=== PATIENT | female | born 1935 | race Asian ===

== ENCOUNTER 2020-12-20 11:58 | Inpatient (IN) | payer OTHER ==
[~2020-12-20] VITALS: Ht 157.5 cm; Wt 57.6 kg
--- NOTE | 2020-12-20 12:05 | NUR ---
Patient to ER bed 06 to gown for evaluation. Side rails up.
[2020-12-20 12:08] VITALS: BP_SYST 122
--- NOTE | 2020-12-20 12:10 | NUR ---
ER at bedside examining patient.
--- NOTE | 2020-12-20 12:10 | NUR ---
Pt brought in from [facility] with increased ALOC since 10AM. At this time pts VSS. Pt is alert x1 which per facility is her baseilne and able to state her name. Capacity Planner are equal, perrla, no slurred speach or facial droop noted. Able to move all extremities. No complaints of pain, SOB or chest pain.
--- NOTE | 2020-12-20 12:20 | NUR ---
# 24 gauge angiocath placed to right FA. Use of asceptic technique. Opsite placed over site. Blood return noted. Blood for lab drawn from site. Flushed with 10 cc of normal saline. No evidence of infiltration noted. Patient tolerated well.
[2020-12-20 12:48] LABS: BASOPHILS % (AUTO) 0.2 % (0.0-2.0); HEMATOCRIT 36.6 % (36-48); HEMOGLOBIN 12.1 g/dL (12.0-16.0); LYMPHOCYTES # (AUTO) 1.4 K/uL (1.0-5.5); LYMPHOCYTES % (AUTO) 9.8 % (20.5-51.5); MEAN CORPUSCULAR HEMOGLOBIN 28 pg (27-31); MEAN CORPUSCULAR HGB CONC 33 % (32-36); MEAN CORPUSCULAR VOLUME 84 fL (79.0-98.0); MONOCYTES # (AUTO) 1.4 K/uL (0.0-1.0); MONOCYTES % (AUTO) 9.6 % (1.7-9.3); NEUTROPHILS # (AUTO) 11.7 K/uL (1.8-7.7); NEUTROPHILS % (AUTO) 80.4 % (40.0-70.0); PLATELET COUNT (AUTO) 281 K/uL (130-430); RED BLOOD CELL COUNT(AUTO) 4.34 MIL/uL (4.2-6.2); RED CELL DISTRIBUTION WIDTH 16.5 % (9.0-15.0); WHITE BLOOD COUNT (AUTO) 14.5 K/uL (4.8-10.8)
--- NOTE | 2020-12-20 12:58 | NUR ---
Pt taken to CT in stable condition.
--- NOTE | 2020-12-20 12:59 | NUR ---
UA sent to lab.
[2020-12-20 13:00] LABS: ANION GAP 11 (5-15); CALCIUM 8.9 mg/dL (8.4-11.0); CHLORIDE 92 mmol/L (98-107); CREATININE 1.03 mg/dL (0.55-1.30); GLUCOSE 129 mg/dL (70-99); POTASSIUM 3.5 mmol/L (3.5-5.1); SODIUM SERUM 126 mmol/L (136-145); UREA NITROGEN, BLOOD 15 mg/dL (8-21)
[2020-12-20] MEDS ORDERED: NACL 0.9% 1,000 ML IV ONE (13:00)
[2020-12-20 13:06] LABS: ALANINE AMINOTRANSFERASE 39 U/L (12-78); ALBUMIN 2.4 g/dL (3.4-4.8); ASPARTATE AMINOTRANSFERASE 38 U/L (10-37); TOTAL BILIRUBIN 0.6 mg/dL (0.0-1.0)
[2020-12-20 13:29] LABS: BILIRUBIN,URINE NEGATIVE (NEGATIVE); BLOOD, URINE 3+ (NEGATIVE); COLOR,URINE YELLOW (YELLOW); GLUCOSE,URINE NEGATIVE (NEGATIVE); KETONES,URINE 1+ (NEGATIVE); LEUKOCYTE ESTERASE ,URINE TRACE (NEGATIVE); NITRITE, URINE NEGATIVE (NEGATIVE); PROTEIN URINE 2+ (NEGATIVE)
[2020-12-20] MEDS ORDERED: cefTRIAXone 1 GM in D5W 50 ML IV ONE (13:30)
[2020-12-20 13:32] LABS: CLARITY/URINE HAZY (CLEAR)
[2020-12-20 13:36] LABS: BACTERIA,URINE MANY /HPF (None Seen); MUCUS,URINE 1+ /LPF (None Seen)
[2020-12-20] MEDS ORDERED: cefTRIAXone 1 GM VIAL ONE (13:36)
--- NOTE | 2020-12-20 13:39 | NUR ---
IV abx infusing.
[2020-12-20] MEDS ORDERED: VALS320T2 PO (13:43)
[2020-12-20] MEDS ORDERED: DOCU-144 PO (13:43)
[2020-12-20] MEDS ORDERED: METO25TA3 PO (13:43)
[2020-12-20] MEDS ORDERED: PRO40 PO (13:43)
[2020-12-20] MEDS ORDERED: ZINC50TA69 PO (13:43)
[2020-12-20] MEDS ORDERED: MULT-1117 PO (13:43)
[2020-12-20] MEDS ORDERED: LEVE500T9 PO (13:43)
--- NOTE | 2020-12-20 13:44 | NUR ---
Med rec and belongings list completed.
--- NOTE | 2020-12-20 13:46 | NUR ---
Admit orders received from Dr. Suero, pt to go to tele. Called for bed, charge nurse at lunch, will call us back for bed assignment.
--- NOTE | 2020-12-20 14:25 | NUR ---
Patient will be admitted to care of Pio. Admitted to tele unit. Will go to room 113 B. Belongings list completed. Complete and up to date summary report printed. SBAR report to be given at bedside with opportunity for questions.
--- NOTE | 2020-12-20 14:42 | NUR ---
ADMISSION NOTE Received patient from ER via gurney. Patient admitted with diagnosis of HYPONATREMIA. Patient is awake, alert, oriented X 2. Patient oriented to hospital room, call light, toileting, pain management and safety-teach back done. Personal belongings checked and Belongings List documented. Call light within reach.
--- NOTE | 2020-12-20 14:50 | NUR ---
OPENING NOTE PATIENT IS ALERT AND ORIENTED X2. SON AT BEDSIDE. PATIENT IS ON ROOM AIR AND TOLERATING WELL WITH NO SIGNS OF SHORTNESS OF BREATH NOTED. IV IS PATENT, INFUSING FLUIDS ORDERED. VITAL SIGNS ARE STABLE. BED LOCKED AND IN LOWEST POSITION. CALL LIGHT WITHIN REACH. BED ALARM ON. SAFETY AND FALL PRECAUTIONS IN PLACE. WILL CONTINUE TO MONITOR.
[2020-12-20 15:15] VITALS: BP_SYST 122
[2020-12-20] MEDS: NACL 0.9% 1,000 ML IV SCH (15:37)
[2020-12-20 15:54] VITALS: BP_SYST 122
--- NOTE | 2020-12-20 17:18 | NUR ---
CT PATIENT TAKEN TO CT SCAN OF ABDOMEN. IN STABLE CONDITION. PATIENT'S [id number] WENT WITH. WILL WAIT FOR RETURN TO UNIT.
[2020-12-20] MEDS: PIPERACILLIN/TAZO 3.375/DEX-IS 50 ML IV SCH ×2 (17:40→23:26)
--- NOTE | 2020-12-20 19:30 | NUR ---
OPENING NOTE RECEIVED PATIENT FROM DAY SHIFT RN. PATIENT IS RESTING IN HER BED. SON AT THE BEDSIDE. NO SIGNS OF ACUTE DISTRESS NOTED. PATIENT IS BREATHING EASY, UNLABORED TO ROOM AIR. NO SIGNS OF RESPIRATORY DISTRESS NOTED. IV INTACT AND RUNNING FLUIDS. ROBLES CATHETER INTACT, DRAINING BY GRAVITY. CALL LIGHT WITHIN REACH. BED IS LOCKED AND PLACED AT THE LOWEST POSITION. SAFETY, FALL, SEIZURE, AND ASPIRATION PRECAUTIONS IN PLACED. WILL CONTINUE TO MONITOR.
[2020-12-20 20:00] VITALS: BP_SYST 143
[2020-12-20] MEDS: levETIRAcetam 500 MG TABLET PO SCH (20:13)
[2020-12-21] VITALS: BP_SYST 118
--- NOTE | 2020-12-21 00:46 | NUR ---
Paged Dr. Suero [phone] s/w Ashley
--- NOTE | 2020-12-21 01:01 | NUR ---
SECOND PAGED DR. VARGAS
--- NOTE | 2020-12-21 02:34 | NUR ---
PAGED DR. VARGAS AGAIN. AWAITING MD TO CALL BACK.
[2020-12-21 02:40] VITALS: BP_SYST 134
--- NOTE | 2020-12-21 03:02 | NUR ---
REPAGED DR. VARGAS. STILL WAITING MD TO CALL BACK.
--- NOTE | 2020-12-21 03:43 | NUR ---
NOTIFIED DR VARGAS REGARDING PT POSITIVE BLOOD CULTURE, FEVER, AND HEART RATE. NEW ORDER RECEIVED. WILL CONTINUE TO MONITOR. Addendum: 12/21/20 at 0550 by Xavire Denton RN SARKIS
--- NOTE | 2020-12-21 03:43 | NUR ---
CALLED BACK. NOTIFIED DR VARGAS REGARDING PT POSITIVE BLOOD CULTURE, FEVER, AND HEART RATE. NEW ORDER RECEIVED. WILL CONTINUE TO MONITOR.
[2020-12-21] MEDS ORDERED: LEVOFLOXACIN IN DEXTROSE 5 % 100 ML IV SCH (04:00)
[2020-12-21] MEDS ORDERED: ACETAMINOPHEN 325 MG TABLET PO PRN (04:00)
[2020-12-21] MEDS ORDERED: LEVOFLOXACIN IN DEXTROSE 5 % 100 ML IV ONE (04:36)
[2020-12-21] MEDS: NACL 0.9% 1,000 ML IV SCH ×2 (04:42→20:23)
[2020-12-21] MEDS: PIPERACILLIN/TAZO 3.375/DEX-IS 50 ML IV SCH ×4 (06:35→23:51)
--- NOTE | 2020-12-21 06:40 | NUR ---
CLOSING NOTE PATIENT IS RESTING IN HER BED. PATIENT IS BREATHING EASY, UNLABORED TO ROOM AIR. NO SIGNS OF RESPIRATORY DISTRESS NOTED. IV INTACT AND RUNNING FLUIDS. NO SIGNS OF INFILTRATION NOTED. ROBLES CATHETER INTACT, DRAINING BY GRAVITY. CALL LIGHT WITHIN REACH. BED IS LOCKED AND PLACED AT THE LOWEST POSITION. SAFETY, FALL, SEIZURE, AND ASPIRATION PRECAUTIONS IN PLACED. ALL NEEDS ARE MET THROUGHOUT SHIFT. WILL CONTINUE TO MONITOR UNTIL ENDORSE TO DAY SHIFT RN.
--- NOTE | 2020-12-21 06:44 | NUR ---
Nutrition Update Obed Scale 15 noted. Pt admitted for Hyponatremia, UTI Diet: 2gm Na BMI: 23.2 kg/m2 RD to follow per nutrition care standards.
[2020-12-21 07:09] LABS: BASOPHILS % (AUTO) 0.1 % (0.0-2.0); HEMATOCRIT 36.7 % (36-48); HEMOGLOBIN 11.9 g/dL (12.0-16.0); LYMPHOCYTES # (AUTO) 0.4 K/uL (1.0-5.5); LYMPHOCYTES % (AUTO) 2.9 % (20.5-51.5); MEAN CORPUSCULAR HEMOGLOBIN 28 pg (27-31); MEAN CORPUSCULAR HGB CONC 32 % (32-36); MEAN CORPUSCULAR VOLUME 85 fL (79.0-98.0); MONOCYTES # (AUTO) 0.2 K/uL (0.0-1.0); MONOCYTES % (AUTO) 1.3 % (1.7-9.3); NEUTROPHILS # (AUTO) 11.8 K/uL (1.8-7.7); NEUTROPHILS % (AUTO) 95.7 % (40.0-70.0); PLATELET COUNT (AUTO) 168 K/uL (130-430); RED BLOOD CELL COUNT(AUTO) 4.31 MIL/uL (4.2-6.2); RED CELL DISTRIBUTION WIDTH 16.6 % (9.0-15.0); WHITE BLOOD COUNT (AUTO) 12.4 K/uL (4.8-10.8)
[2020-12-21 07:24] LABS: ALANINE AMINOTRANSFERASE 36 U/L (12-78); ANION GAP 15 (5-15); ASPARTATE AMINOTRANSFERASE 52 U/L (10-37); CALCIUM 8.5 mg/dL (8.4-11.0); CHLORIDE 99 mmol/L (98-107); CREATININE 0.91 mg/dL (0.55-1.30); GLUCOSE 104 mg/dL (70-99); POTASSIUM 3.3 mmol/L (3.5-5.1); SODIUM SERUM 134 mmol/L (136-145); TOTAL BILIRUBIN 0.9 mg/dL (0.0-1.0); UREA NITROGEN, BLOOD 12 mg/dL (8-21)
[2020-12-21 08:00] VITALS: BP_SYST 112
--- NOTE | 2020-12-21 08:00 | NUR ---
OPENING NOTE PATIENT IS ALERT AND ORIENTED X 3. PATIENT IS ON ROOM AIR AND TOLERATING WELL WITH NO SIGNS OF SHORTNESS OF BREATH NOTED. IV IS PATENT, INFUSING FLUIDS ORDERED. BED LOCKED AND IN LOWEST POSITION. CALL LIGHT WITHIN REACH. BED ALARM ON. SAFETY AND FALL PRECAUTIONS IN PLACE. WILL CONTINUE TO MONITOR.
[2020-12-21] MEDS: levETIRAcetam 500 MG TABLET PO SCH ×2 (08:12→20:24)
[2020-12-21] MEDS: LOSARTAN POTASSIUM 50 MG TABLET (COZAAR) PO SCH (08:12)
[2020-12-21] MEDS: METOPROLOL SUCCINATE 25 MG TAB.SR.24H (TOPROL XL) PO SCH (08:12)
[2020-12-21] MEDS: MULTIVITAMINS TAB 1 TABLET PO SCH (08:13)
[2020-12-21] MEDS: PANTOPRAZOLE SODIUM 40 MG TAB PO SCH (08:13)
[2020-12-21] MEDS: DOCUSATE SODIUM 100 MG CAPSULE PO SCH (08:13)
[2020-12-21 12:25] VITALS: BP_SYST 109
--- NOTE | 2020-12-21 13:20 | NUR ---
IV RE-INSERTION: Complaining of pain to IV site. Restarted on left forearm. Successful after 2 attempts. Resumed current IVF of normal saline and regulated @ 70 per hour. Will observe for any signs of infiltration.
[2020-12-21 16:47] VITALS: BP_SYST 112
--- NOTE | 2020-12-21 18:42 | NUR ---
CLOSING NOTE PATIENT IS ON ROOM AIR AND TOLERATING WELL WITH NO SIGNS OF SHORTNESS OF BREATH NOTED. IV IS PATENT, INFUSING FLUIDS ORDERED. BED LOCKED AND IN LOWEST POSITION. CALL LIGHT WITHIN REACH. BED ALARM ON. SAFETY AND FALL PRECAUTIONS IN PLACE. WILL
--- NOTE | 2020-12-21 19:30 | NUR ---
OPENING NOTE RECEIVED PATIENT FROM DAY SHIFT RN. PATIENT IS RESTING IN HER BED. FAMILY AT THE BEDSIDE. NO SIGNS OF ACUTE DISTRESS NOTED. PATIENT IS BREATHING EASY, UNLABORED TO ROOM AIR. NO SIGNS OF RESPIRATORY DISTRESS NOTED. IV INTACT AND RUNNING FLUIDS. NO SIGNS OF INFILTRATION NOTED. ROBLES CATHETER INTACT, DRAINING BY GRAVITY. CALL LIGHT WITHIN REACH. BED IS LOCKED AND PLACED AT THE LOWEST POSITION. SAFETY, FALL, SEIZURE, AND ASPIRATION PRECAUTIONS IN PLACED. WILL CONTINUE TO MONITOR.
[2020-12-21 20:00] VITALS: BP_SYST 115
[2020-12-21] MEDS ORDERED: LEVOFLOXACIN 250 MG/D5W 50 ML IV SCH (21:00)
[2020-12-22] VITALS: BP_SYST 94
[2020-12-22] MEDS: PIPERACILLIN/TAZO 3.375/DEX-IS 50 ML IV SCH ×3 (05:07→17:11)
--- NOTE | 2020-12-22 06:52 | NUR ---
CLOSING NOTE PATIENT IS RESTING IN HER BED. PATIENT IS BREATHING EASY, UNLABORED TO ROOM AIR. NO SIGNS OF RESPIRATORY DISTRESS NOTED. IV INTACT AND RUNNING FLUIDS ORDERED. NO SIGNS OF INFILTRATION NOTED. ROBLES CATHETER INTACT, DRAINING BY GRAVITY. CALL LIGHT WITHIN REACH. BED IS LOCKED AND PLACED AT THE LOWEST POSITION. SAFETY, FALL, SEIZURE, AND ASPIRATION PRECAUTIONS IN PLACED. ALL NEEDS ARE MET THROUGHOUT SHIFT. WILL CONTINUE TO MONITOR UNTIL ENDORSE TO DAY SHIFT RN.
--- NOTE | 2020-12-22 07:38 | NUR ---
RN OPENING NOTE PATIENT APPEARS TO BE RESTING NO SIGNS OF ANY DISTRESS, BREATHING IS EQUAL AND NON LABORED. PATIENT IS ON TELEMONITOR. ALL SAFETY PRECAUTIONS IN PLACE. REPORT WAS ENDORSED BY NIGHT NURSE. NO OTHER NEEDS AT THIS TIME.
[2020-12-22 08:52] VITALS: BP_SYST 152
[2020-12-22] MEDS: PANTOPRAZOLE SODIUM 40 MG TAB PO SCH (08:59)
[2020-12-22] MEDS: levETIRAcetam 500 MG TABLET PO SCH ×2 (08:59→21:14)
[2020-12-22] MEDS: DOCUSATE SODIUM 100 MG CAPSULE PO SCH (08:59)
[2020-12-22] MEDS: MULTIVITAMINS TAB 1 TABLET PO SCH (09:00)
[2020-12-22] MEDS: LOSARTAN POTASSIUM 50 MG TABLET (COZAAR) PO SCH (09:00)
[2020-12-22] MEDS: METOPROLOL SUCCINATE 25 MG TAB.SR.24H (TOPROL XL) PO SCH (09:00)
--- NOTE | 2020-12-22 09:04 | NUR ---
MEDICATION PATIENTS SCHEDULED MEDICATION GIVEN PER ORDER. PATIENT IS AWAKE AND ALERT SITTING UP IN BED. PATIENT HAS CALL LIGHT WITH HER EDUCATED TO USE FOR ASSISTANCE. PATIENT HAS SEIZURE AND SAFETY PRECAUTIONS IN PLACE. PATIENT IS CLOSE TO NURSES STATION. NO OTHER NEEDS AT THIS TIME.
--- NOTE | 2020-12-22 10:08 | NUR ---
SPOKE WITH MD AND INFORMED OF NOTE THAT STATED WANTED TO PLACE ORDER FOR ID CONSULT, MD STATES HE WILL PUT ORDER IN. ALSO SPOKE WITH PATIENTS FAMILY AND WANTS MD TO CALL WITH UP DATES. INFORMED THAT FAMILY WOULD LIKE UPDATES PHONE NUMBER IS IN THE CHART.
--- NOTE | 2020-12-22 10:53 | NUR ---
BCONSULTATION PAGED/CALLED Reason for Consultation: SEPSIS Person Who was Notified: [facility] Consulting Physician: [facility] Specialty: ID Ordering Physician: SAM
[2020-12-22] MEDS: NACL 0.9% 1,000 ML IV SCH ×2 (11:56→23:57)
[2020-12-22 12:00] VITALS: BP_SYST 118
--- NOTE | 2020-12-22 12:01 | NUR ---
MEDICATION PATIENTS SCHEDULED MEDICATION GIVEN PER ORDER. PATIENT IS AWAKE AND ALERT SITTING IN BED. PATIENT REQUESTING TO SPEAK TO SON, DIALED ON HOSPITAL PHONE. PATIENT EDUCATED SENIOR SALES ASSOCIATE LIGHT, CALL LIGHT IS WITH PATIENT. PATIENT SHOWS NO SIGNS OF ANY DISTRESS, BREATHING IS EQUAL AND NON LABORED. PATIENT HAS NO OTHER NEEDS AT THIS TIME. PATIENT IS CLOSE TO NURSES STATION.
--- NOTE | 2020-12-22 13:09 | NUR ---
Dietitian Recommendations *Recommend: add ONS Ensure Enlive BID *Continue 2gm Na Mechanical soft diet per MD. *Encourage PO intake, assist during meals as needed. *Recommend: consider adding appetite stimulant. Please see Nutritional Assessment for details. WILMA CHAN
--- NOTE | 2020-12-22 15:39 | NUR ---
rn rounding patient is laying in bed.awake and alert no signs of any distress,breathing is equal and non labored. All safety precautions in place. Patient has call light with her educated to use call light for assistance.no other needs at this time. patient is close to nurses station.
[2020-12-22 16:00] VITALS: BP_SYST 131
--- NOTE | 2020-12-22 18:39 | NUR ---
rn closing note patient is awake and alert sitting up in bed eating her dinner. patient has no complaints at this time. patient shows no signs of any distress, breathing is equal and non labored. patient has all safety precautions in place. educated contracts attorney light, call light is with her. patient is close to nurses station. no other needs at this time.
--- NOTE | 2020-12-22 19:40 | NUR ---
ROUNDS PATIENT RESTING COMFORTABLY IN BED, VITALS STABLE, DENIES PAIN AT THIS TIME. ASSESSMENT DONE AND DOCUMENTED. SEE FLOWSHEET. NEEDS ATTENDED TO. SAFETY MEASURES IN PLACED. CALL LIGHT PLACED WITHIN REACH.
--- NOTE | 2020-12-22 21:13 | NUR ---
MEDICATION DUE MEDICATIONS GIVEN ORDERED, TOLERATED WELL. WILL CONTINUE TO MONITOR.
[2020-12-23 00:03] VITALS: BP_SYST 139
--- NOTE | 2020-12-23 00:13 | NUR ---
PATIENT RESTING: Patient resting quietly. No acute distress noted. Vital signs within normal range.
[2020-12-23] MEDS: PIPERACILLIN/TAZO 3.375/DEX-IS 50 ML IV SCH ×3 (00:38→18:07)
[2020-12-23] MEDS: NACL 0.9% 1,000 ML IV SCH (04:00)
[2020-12-23 06:43] LABS: BASOPHILS % (AUTO) 0.2 % (0.0-2.0); EOSINOPHILS # (AUTO) 0.1 K/uL (0.0-0.4); EOSINOPHILS % (AUTO) 1.1 % (0.0-4.0); HEMATOCRIT 28.2 % (36-48); HEMOGLOBIN 9.2 g/dL (12.0-16.0); LYMPHOCYTES # (AUTO) 1.1 K/uL (1.0-5.5); LYMPHOCYTES % (AUTO) 8.5 % (20.5-51.5); MEAN CORPUSCULAR HEMOGLOBIN 27 pg (27-31); MEAN CORPUSCULAR HGB CONC 33 % (32-36); MEAN CORPUSCULAR VOLUME 84 fL (79.0-98.0); MONOCYTES # (AUTO) 0.5 K/uL (0.0-1.0); MONOCYTES % (AUTO) 4.1 % (1.7-9.3); NEUTROPHILS # (AUTO) 11.3 K/uL (1.8-7.7); NEUTROPHILS % (AUTO) 86.1 % (40.0-70.0); PLATELET COUNT (AUTO) 155 K/uL (130-430); RED BLOOD CELL COUNT(AUTO) 3.37 MIL/uL (4.2-6.2); RED CELL DISTRIBUTION WIDTH 16.1 % (9.0-15.0); WHITE BLOOD COUNT (AUTO) 13.1 K/uL (4.8-10.8)
[2020-12-23 07:09] LABS: ALANINE AMINOTRANSFERASE 22 U/L (12-78); ALBUMIN 1.5 g/dL (3.4-4.8); ANION GAP 11 (5-15); ASPARTATE AMINOTRANSFERASE 26 U/L (10-37); CALCIUM 7.8 mg/dL (8.4-11.0); CHLORIDE 101 mmol/L (98-107); CREATININE 0.77 mg/dL (0.55-1.30); GLUCOSE 112 mg/dL (70-99); POTASSIUM 3.2 mmol/L (3.5-5.1); SODIUM SERUM 133 mmol/L (136-145); TOTAL BILIRUBIN 0.6 mg/dL (0.0-1.0); UREA NITROGEN, BLOOD 14 mg/dL (8-21)
[2020-12-23 08:00] VITALS: BP_SYST 112
--- NOTE | 2020-12-23 08:00 | NUR ---
ASSUMPTION OF CARE: RECEIVED PT A/A/OX3, DX: ELECTROLYTE IMBALANCE, R/T HYPONATREMIA, UTI, SODIUM LEVEL =134, AFEBRILE, VSS, NO C/O PAIN OR DISCOMFORT, WHEEZES NOTED UPON INHALATION AND EXHALATION, RR=20, UNLABORED, SATURATING 99% ORA, IV SITE INTACT, PATENT, NO REDNESS OR SWELLING, ORIENTED TO UNIT, ROOM CLOSE TO NURSES STATION, CALL LIGHT PLACED WITHIN REACH, WILL CONT' TO MONITOR AND ASSESS.
--- NOTE | 2020-12-23 09:00 | NUR ---
CLIENT LEADER: MORNING MEDS GIVEN, PER ORDERED BY Andre, TOLERATED WELL, NEEDS MET, WILL CONT' TO MONITOR AND ASSESS.
[2020-12-23] MEDS: DOCUSATE SODIUM 100 MG CAPSULE PO SCH (10:11)
[2020-12-23] MEDS: LOSARTAN POTASSIUM 50 MG TABLET (COZAAR) PO SCH (10:11)
[2020-12-23] MEDS: MULTIVITAMINS TAB 1 TABLET PO SCH (10:12)
[2020-12-23] MEDS: METOPROLOL SUCCINATE 25 MG TAB.SR.24H (TOPROL XL) PO SCH (10:12)
[2020-12-23] MEDS: PANTOPRAZOLE SODIUM 40 MG TAB PO SCH (10:12)
[2020-12-23] MEDS: levETIRAcetam 500 MG TABLET PO SCH ×2 (10:19→20:09)
[2020-12-23 12:48] VITALS: BP_SYST 122
--- NOTE | 2020-12-23 14:00 | NUR ---
NURSES NOTES: FAMILY AT BEDSIDE, DISCUSSED POC, DAUGHTER REQUESTING TO SPEAK WITH PRIMARY REGARDING LATEST TEST RESULTS, WILL NOTIFY M.Macey. A.S.A.P., WILL CONT' TO MONITOR AND ASSESS.
[2020-12-23 16:00] VITALS: BP_SYST 109
--- NOTE | 2020-12-23 17:35 | NUR ---
NURSES NOTES: SPOKE WITH , REPORTED RESULTS OF BLOOD AND URINE CULTURES, NEW ORDERS GIVEN, WILL CONT' TO MONITOR AND ASSESS.
--- NOTE | 2020-12-23 17:50 | NUR ---
NURSES NOTES: SPOKE WITH DR ALCALA, REPORTED RESULTS OF BLD/URINE CULTURE RESULTS, SATISFIED WITH PRESENT ORDERS, D/C DENIA AT THIS TIME, WILL CONT' TO MONITOR AND ASSESS.
[2020-12-23] MEDS ORDERED: COMMUNICATION ORDER XX ONE ×2 (18:30)
--- NOTE | 2020-12-23 19:35 | NUR ---
ROUNDS PATIENT RESTING COMFORTABLY IN BED, VITALS STABLE, NO SIGNS OF ANY PAIN AND DISCOMFORT NOTED. ASSESSMENT DONE AND DOCUEMNTED. SEE FLOWSHEET. NEEDS ATTENDED TO. SAFETY AND FALL MEASURES IN PLACED. BED IN LOW AND LOCKED POSITION. CALL LIGHT PLACED WITHIN REACH.
[2020-12-23 20:00] VITALS: BP_SYST 134
[2020-12-23] MEDS: MEROPENEM 1 GM in NS 100 ML IV SCH (20:10)
--- NOTE | 2020-12-23 21:13 | NUR ---
MEDICATION DUE MEDICATIONS GIVEN , TOLERATED WELL. WILL CONTINUE TO MONITOR.
[2020-12-24 00:04] VITALS: BP_SYST 118
--- NOTE | 2020-12-24 00:15 | NUR ---
ROUNDS PATIENT ASLEEP, RESPIRATIONS EVEN AND UNLABORED, WILL CONTINUE TO MONITOR.
--- NOTE | 2020-12-24 04:29 | NUR ---
ROUNDS PATIENT ASLEEP, NO SOB NOR PAIN AND DISCOMFORT NOTED. WILL CONTINUE TO MONITOR.
[2020-12-24 08:00] VITALS: BP_SYST 129
--- NOTE | 2020-12-24 08:00 | NUR ---
AM NOTES PT IN BED..A/OX2. DENIES ANY PAIN AT THIS TIME. RES EVEN AND UNLABORED. NOT IN ACUTE DISTRESS. VITAL STABLE. SAFETY /FALL PRECAUTIONS IN PLACE. BED LOCKED AND IN LOW POSITION. CALL LIGHT WITHIN REACH. BED ALARM ON.KEPT COMFORTABLE. POC DISCUSSED WITH PT . VERBALIZED UNDERSTANDING.WILL CONTINUE TO MONITOR.
[2020-12-24] MEDS: METOPROLOL SUCCINATE 25 MG TAB.SR.24H (TOPROL XL) PO SCH (09:00)
[2020-12-24] MEDS: LOSARTAN POTASSIUM 50 MG TABLET (COZAAR) PO SCH (09:00)
[2020-12-24] MEDS: levETIRAcetam 500 MG TABLET PO SCH (09:35)
[2020-12-24] MEDS: PANTOPRAZOLE SODIUM 40 MG TAB PO SCH (09:35)
[2020-12-24] MEDS: DOCUSATE SODIUM 100 MG CAPSULE PO SCH (09:35)
[2020-12-24] MEDS: MULTIVITAMINS TAB 1 TABLET PO SCH (09:35)
[2020-12-24] MEDS: MEROPENEM 1 GM in NS 100 ML IV SCH (09:40)
--- NOTE | 2020-12-24 10:00 | NUR ---
iv infiltrated iv site lfa#22 infiltrated swollen.unable to find iv line after 2 attempts .new iv line started rt hand #24. by er nurse suzan.flushed well. no s/s of infiltration noted. will conitnue to monitor
[2020-12-24 10:18] LABS: ANION GAP 11 (5-15); CALCIUM 8.2 mg/dL (8.4-11.0); CHLORIDE 102 mmol/L (98-107); CREATININE 0.73 mg/dL (0.55-1.30); GLUCOSE 111 mg/dL (70-99); POTASSIUM 3.5 mmol/L (3.5-5.1); SODIUM SERUM 135 mmol/L (136-145); UREA NITROGEN, BLOOD 11 mg/dL (8-21)
--- NOTE | 2020-12-24 11:20 | NUR ---
Patient accepted at [facility] room 23A number for report [phone]. [facility] to transfer at 3:30 PM today.Discharge disposition [id number]
[2020-12-24 13:02] VITALS: BP_SYST 98
[2020-12-24] MEDS: NACL 0.9% 1,000 ML IV SCH (13:43)
[2020-12-24 14:30] VITALS: BP_SYST 122
--- NOTE | 2020-12-24 15:35 | NUR ---
D/C Patient Patient given medication reconciliation form and D/C instructions. Exit Care provided. Patient verbalized understanding. discussed with patient the results and treatment provided. pt discharged to [facility]. Patient in stable condition, ID band removed. iv rt hand #24 intact. flused well . no s/s of infiltration noted Patient educated on pain management. All belongings sent with patient.pt son at bedside.pt left hospital via [facility] in stable condition
[2020-12-24 16:47] VITALS: BP_SYST 122
== END 2020-12-24 15:35 | DRG 871 ==
LOC: EDSEX 11:58 → SED 11:58 → STU 13:52 → SMU 12-22 14:49
PROVIDERS: ADMIT Internal Medicine Hospice and Palliative Medicine; ATTEND Internal Medicine Hospice and Palliative Medicine
DX: A41.50 Gram-negative sepsis, unspecified (principal); E43 Unspecified severe protein-calorie malnutrition; G93.41 Metabolic encephalopathy; N39.0 Urinary tract infection, site not specified; E87.0 Hyperosmolality and hypernatremia; E87.2 Acidosis; F02.80 Dementia in other diseases classified elsewhere, unspecified severity, without behavioral disturbance, psychotic disturbance, mood disturbance, and anxiety; R62.7 Adult failure to thrive; G30.9 Alzheimer's disease, unspecified; I10 Essential (primary) hypertension; B96.20 Unspecified Escherichia coli [E. coli] as the cause of diseases classified elsewhere; Z20.822 Contact with and (suspected) exposure to COVID-19; Z79.899 Other long term (current) drug therapy; Z68.23 Body mass index [BMI] 23.0-23.9, adult; Z90.49 Acquired absence of other specified parts of digestive tract
CPT/HCPCS: 36415; 70450-TC; 71045; 76376; 80048; 80053; 81000; 82550; 83605; 84484; 85025; 87040-TC; 87081; 87086; 93005; 96365; 99285; G0378; J0696; J1956; J2185; J2543

== ENCOUNTER 2022-02-07 10:47 | Inpatient (IN) | payer OTHER, MEDICAID ==
[~2022-02-07] VITALS: Ht 152.4 cm; Wt 54.4 kg
[~2022-02-07 10:47] MED LIST: DOCU-144 PO; LEVE500T9 PO; METO25TA3 PO; MULT-1117 PO; PRO40 PO; VALS320T2 PO; ZINC50TA69 PO
[2022-02-07 11:25] VITALS: BP_SYST 167
[2022-02-07 13:23] LABS: EOSINOPHILS % (AUTO) 0.1 % (0.0-4.0); HEMATOCRIT 37.1 % (36-48); HEMOGLOBIN 11.5 g/dL (12.0-16.0); LYMPHOCYTES # (AUTO) 1.1 K/uL (1.0-5.5); LYMPHOCYTES % (AUTO) 6.4 % (20.5-51.5); MEAN CORPUSCULAR HEMOGLOBIN 23 pg (27-31); MEAN CORPUSCULAR HGB CONC 31 % (32-36); MEAN CORPUSCULAR VOLUME 74 fL (79.0-98.0); MONOCYTES # (AUTO) 1.1 K/uL (0.0-1.0); MONOCYTES % (AUTO) 6.4 % (1.7-9.3); NEUTROPHILS # (AUTO) 15.2 K/uL (1.8-7.7); NEUTROPHILS % (AUTO) 87.1 % (40.0-70.0); PLATELET COUNT (AUTO) 371 K/uL (130-430); RED BLOOD CELL COUNT(AUTO) 5.04 MIL/uL (4.2-6.2); RED CELL DISTRIBUTION WIDTH 20.5 % (9.0-15.0); WHITE BLOOD COUNT (AUTO) 17.5 K/uL (4.8-10.8)
[2022-02-07 13:25] LABS: ANION GAP 12 (5-15); CALCIUM 8.8 mg/dL (8.4-11.0); CHLORIDE 90 mmol/L (98-107); CREATININE 0.88 mg/dL (0.55-1.30); GLUCOSE 149 mg/dL (70-99); POTASSIUM 3.7 mmol/L (3.5-5.1); SODIUM SERUM 121 mmol/L (136-145); UREA NITROGEN, BLOOD 20 mg/dL (8-21)
[2022-02-07 13:34] LABS: ALANINE AMINOTRANSFERASE 45 U/L (12-78); ALBUMIN 2.6 g/dL (3.4-4.8); ASPARTATE AMINOTRANSFERASE 69 U/L (10-37); TOTAL BILIRUBIN 0.3 mg/dL (0.0-1.0)
[2022-02-07 13:34] LABS: BILIRUBIN,URINE NEGATIVE (NEGATIVE); BLOOD, URINE 2+ (NEGATIVE); CLARITY/URINE CLOUDY (CLEAR); COLOR,URINE YELLOW (YELLOW); GLUCOSE,URINE NEGATIVE (NEGATIVE); KETONES,URINE NEGATIVE (NEGATIVE); LEUKOCYTE ESTERASE ,URINE 2+ (NEGATIVE); NITRITE, URINE NEGATIVE (NEGATIVE); PROTEIN URINE 2+ (NEGATIVE)
[2022-02-07] MEDS ORDERED: ASPIRIN 300 MG/SUPP.RECT SUPP RC ONE (13:45)
[2022-02-07] MEDS ORDERED: NACL 0.9% 1,000 ML IV ONE (13:45)
[2022-02-07] MEDS ORDERED: cefTRIAXone 1 GM IVPB PREMIX 50 ML IV ONE (13:45)
[2022-02-07 14:14] LABS: BACTERIA,URINE MANY /HPF (None Seen); RBC,URINE 20-50 /HPF (0-3); WBC,URINE 20-50 /HPF (0-3)
[2022-02-07] MEDS ORDERED: NS 500 ML IV ONE (14:15)
[2022-02-07] MEDS ORDERED: IPRATROPIUM/ALBUTEROL SULFATE 3 ML AMPUL.NEB (DUONEB) INH ONE ×2 (14:15→14:45)
[2022-02-07] MEDS ORDERED: ONDANSETRON HCL 4 MG/2 ML VIAL IVP PRN (15:00)
[2022-02-07] MEDS ORDERED: MAGNESIUM SULFATE 50 ML IV PRN (15:00)
[2022-02-07] MEDS ORDERED: ZOLPIDEM TARTRATE 5 MG TABLET PO PRN (15:00)
[2022-02-07] MEDS ORDERED: MUPIROCIN 2% TOPICAL OINTMENT 22 GM NS PRN (15:00)
[2022-02-07] MEDS ORDERED: MORPHINE 2 MG/ML INJ. SYRINGE IVP PRN ×2 (15:00)
[2022-02-07] MEDS ORDERED: DOCUSATE SODIUM 100 MG CAPSULE PO PRN (15:00)
[2022-02-07] MEDS ORDERED: POTASSIUM CHLORIDE 20 MEQ TAB.PRT.SR PO PRN (15:00)
[2022-02-07 21:42] VITALS: BP_SYST 142
[2022-02-07 22:09] VITALS: BP_SYST 142
[2022-02-07] MEDS: levETIRAcetam 500 MG TABLET PO SCH (22:24)
[2022-02-08] VITALS (7 sets, daily range): BP systolic 127–151
[2022-02-08 08:02] LABS: ANION GAP 8 (5-15); CALCIUM 8.4 mg/dL (8.4-11.0); CHLORIDE 96 mmol/L (98-107); CREATININE 0.69 mg/dL (0.55-1.30); GLUCOSE 103 mg/dL (70-99); POTASSIUM 4.1 mmol/L (3.5-5.1); SODIUM SERUM 127 mmol/L (136-145); UREA NITROGEN, BLOOD 20 mg/dL (8-21)
[2022-02-08 08:09] LABS: ALANINE AMINOTRANSFERASE 38 U/L (12-78); ALBUMIN 2.2 g/dL (3.4-4.8); ASPARTATE AMINOTRANSFERASE 75 U/L (10-37); TOTAL BILIRUBIN 0.3 mg/dL (0.0-1.0)
[2022-02-08] MEDS ORDERED: NACL 0.9% 1,000 ML IV SCH (08:15)
[2022-02-08] MEDS: levETIRAcetam 500 MG TABLET PO SCH ×2 (09:00→20:57)
[2022-02-08] MEDS: MULTIVITAMINS TAB 1 TABLET PO SCH (09:00)
[2022-02-08] MEDS: PANTOPRAZOLE SODIUM 40 MG TAB PO SCH (09:00)
[2022-02-08] MEDS: ASPIRIN 81 MG TAB.CHEW PO SCH (09:00)
[2022-02-08] MEDS ORDERED: LOSARTAN POTASSIUM 50 MG TABLET (COZAAR) PO SCH (09:00)
[2022-02-08] MEDS: METOPROLOL TARTRATE 25 MG TABLET PO SCH (09:00)
[2022-02-08] MEDS: DOCUSATE SODIUM 100 MG CAPSULE PO SCH (09:00)
[2022-02-08 10:02] LABS: BASOPHILS % (AUTO) 0.2 % (0.0-2.0); EOSINOPHILS % (AUTO) 0.2 % (0.0-4.0); HEMATOCRIT 31.6 % (36-48); HEMOGLOBIN 10.1 g/dL (12.0-16.0); LYMPHOCYTES # (AUTO) 1.8 K/uL (1.0-5.5); LYMPHOCYTES % (AUTO) 9.7 % (20.5-51.5); MEAN CORPUSCULAR HEMOGLOBIN 23 pg (27-31); MEAN CORPUSCULAR HGB CONC 32 % (32-36); MEAN CORPUSCULAR VOLUME 71 fL (79.0-98.0); MONOCYTES # (AUTO) 0.9 K/uL (0.0-1.0); MONOCYTES % (AUTO) 5.1 % (1.7-9.3); NEUTROPHILS # (AUTO) 15.4 K/uL (1.8-7.7); NEUTROPHILS % (AUTO) 84.8 % (40.0-70.0); PLATELET COUNT (AUTO) 364 K/uL (130-430); RED BLOOD CELL COUNT(AUTO) 4.44 MIL/uL (4.2-6.2); RED CELL DISTRIBUTION WIDTH 20.1 % (9.0-15.0); WHITE BLOOD COUNT (AUTO) 18.2 K/uL (4.8-10.8)
[2022-02-08] MEDS ORDERED: cefTRIAXone 1 GM in D5W 50 ML IV SCH (14:00)
[2022-02-08] MEDS ORDERED: IPRATROPIUM/ALBUTEROL SULFATE 3 ML AMPUL.NEB (DUONEB) INH PRN (18:00)
[2022-02-08] MEDS: ACETAMINOPHEN 325 MG TABLET PO PRN (18:02)
[2022-02-09] VITALS: BP_SYST 119
[2022-02-09] MEDS ORDERED: PIPERACILLIN/TAZOBACTAM 2.25 GM VIAL IV ONE (00:53)
[2022-02-09] MEDS: PIPERACILLIN/TAZO 2.25G/DEX-IS 50 ML IV SCH ×5 (01:00→23:17)
[2022-02-09] MEDS: LORazepam 2 MG/ML VIAL IVP PRN ×2 (01:02→10:21)
[2022-02-09 04:07] VITALS: BP_SYST 115
[2022-02-09 06:59] LABS: ANION GAP 6 (5-15); CALCIUM 7.9 mg/dL (8.4-11.0); CHLORIDE 100 mmol/L (98-107); CREATININE 0.63 mg/dL (0.55-1.30); GLUCOSE 95 mg/dL (70-99); POTASSIUM 3.9 mmol/L (3.5-5.1); SODIUM SERUM 131 mmol/L (136-145); UREA NITROGEN, BLOOD 16 mg/dL (8-21)
[2022-02-09 07:17] LABS: BASOPHILS # (AUTO) 0.1 K/uL (0.0-0.2); BASOPHILS % (AUTO) 0.6 % (0.0-2.0); EOSINOPHILS # (AUTO) 0.3 K/uL (0.0-0.4); EOSINOPHILS % (AUTO) 2.5 % (0.0-4.0); HEMATOCRIT 25.3 % (36-48); HEMOGLOBIN 8.2 g/dL (12.0-16.0); LYMPHOCYTES # (AUTO) 1.9 K/uL (1.0-5.5); LYMPHOCYTES % (AUTO) 16.2 % (20.5-51.5); MEAN CORPUSCULAR HEMOGLOBIN 23 pg (27-31); MEAN CORPUSCULAR HGB CONC 33 % (32-36); MEAN CORPUSCULAR VOLUME 71 fL (79.0-98.0); MONOCYTES # (AUTO) 0.9 K/uL (0.0-1.0); MONOCYTES % (AUTO) 7.3 % (1.7-9.3); NEUTROPHILS # (AUTO) 8.7 K/uL (1.8-7.7); NEUTROPHILS % (AUTO) 73.4 % (40.0-70.0); PLATELET COUNT (AUTO) 359 K/uL (130-430); RED BLOOD CELL COUNT(AUTO) 3.58 MIL/uL (4.2-6.2); RED CELL DISTRIBUTION WIDTH 19.8 % (9.0-15.0); WHITE BLOOD COUNT (AUTO) 11.8 K/uL (4.8-10.8)
[2022-02-09 08:00] VITALS: BP_SYST 100
[2022-02-09] MEDS: levETIRAcetam 500 MG TABLET PO SCH ×2 (10:18→20:37)
[2022-02-09] MEDS: MULTIVITAMINS TAB 1 TABLET PO SCH (10:19)
[2022-02-09] MEDS: METOPROLOL TARTRATE 25 MG TABLET PO SCH (10:19)
[2022-02-09] MEDS: ASPIRIN 81 MG TAB.CHEW PO SCH (10:19)
[2022-02-09] MEDS: PANTOPRAZOLE SODIUM 40 MG TAB PO SCH (10:19)
[2022-02-09] MEDS: DOCUSATE SODIUM 100 MG CAPSULE PO SCH (10:20)
[2022-02-09] MEDS: IPRATROPIUM/ALBUTEROL SULFATE 3 ML AMPUL.NEB (DUONEB) INH SCH ×4 (11:20→23:22)
[2022-02-09 11:42] VITALS: BP_SYST 130
[2022-02-09 16:40] VITALS: BP_SYST 125
[2022-02-09] MEDS: ACETAMINOPHEN 325 MG TABLET PO PRN (17:54)
[2022-02-09 20:00] VITALS: BP_SYST 98
[2022-02-10 00:57] VITALS: BP_SYST 120
[2022-02-10] MEDS: IPRATROPIUM/ALBUTEROL SULFATE 3 ML AMPUL.NEB (DUONEB) INH SCH ×4 (03:42→15:29)
[2022-02-10 04:00] VITALS: BP_SYST 112
[2022-02-10] MEDS: PIPERACILLIN/TAZO 2.25G/DEX-IS 50 ML IV SCH ×2 (05:10→11:37)
[2022-02-10 08:00] VITALS: BP_SYST 143
[2022-02-10 08:18] LABS: BASOPHILS # (AUTO) 0.1 K/uL (0.0-0.2); BASOPHILS % (AUTO) 0.9 % (0.0-2.0); EOSINOPHILS # (AUTO) 0.2 K/uL (0.0-0.4); EOSINOPHILS % (AUTO) 1.4 % (0.0-4.0); HEMATOCRIT 26.3 % (36-48); HEMOGLOBIN 8.3 g/dL (12.0-16.0); LYMPHOCYTES # (AUTO) 1.8 K/uL (1.0-5.5); LYMPHOCYTES % (AUTO) 14.7 % (20.5-51.5); MEAN CORPUSCULAR HEMOGLOBIN 23 pg (27-31); MEAN CORPUSCULAR HGB CONC 32 % (32-36); MEAN CORPUSCULAR VOLUME 72 fL (79.0-98.0); MONOCYTES # (AUTO) 0.8 K/uL (0.0-1.0); MONOCYTES % (AUTO) 6.6 % (1.7-9.3); NEUTROPHILS # (AUTO) 9.6 K/uL (1.8-7.7); NEUTROPHILS % (AUTO) 76.4 % (40.0-70.0); PLATELET COUNT (AUTO) 313 K/uL (130-430); RED BLOOD CELL COUNT(AUTO) 3.64 MIL/uL (4.2-6.2); RED CELL DISTRIBUTION WIDTH 19.8 % (9.0-15.0); WHITE BLOOD COUNT (AUTO) 12.5 K/uL (4.8-10.8)
[2022-02-10] MEDS: ASPIRIN 81 MG TAB.CHEW PO SCH (08:43)
[2022-02-10] MEDS: DOCUSATE SODIUM 100 MG CAPSULE PO SCH (08:43)
[2022-02-10] MEDS: levETIRAcetam 500 MG TABLET PO SCH (08:44)
[2022-02-10] MEDS: MULTIVITAMINS TAB 1 TABLET PO SCH (08:44)
[2022-02-10] MEDS: METOPROLOL TARTRATE 25 MG TABLET PO SCH (08:44)
[2022-02-10] MEDS: PANTOPRAZOLE SODIUM 40 MG TAB PO SCH (08:47)
[2022-02-10 09:35] LABS: ANION GAP 7 (5-15); CHLORIDE 99 mmol/L (98-107); CREATININE 0.86 mg/dL (0.55-1.30); GLUCOSE 112 mg/dL (70-99); POTASSIUM 3.9 mmol/L (3.5-5.1); SODIUM SERUM 129 mmol/L (136-145); UREA NITROGEN, BLOOD 15 mg/dL (8-21)
[2022-02-10 12:00] VITALS: BP_SYST 111
[2022-02-10] MEDS ORDERED: IV Zosyn IV (13:16)
[2022-02-10 15:13] VITALS: BP_SYST 101
[2022-02-10 16:43] VITALS: BP_SYST 101
== END 2022-02-10 18:10 | DRG 871 ==
LOC: SED 10:47 → STU 16:06
PROVIDERS: ADMIT Family Medicine; ATTEND Family Medicine
DX: A41.9 Sepsis, unspecified organism (principal); G93.41 Metabolic encephalopathy; R53.2 Functional quadriplegia; I21.4 Non-ST elevation (NSTEMI) myocardial infarction; K83.2 Perforation of bile duct; N39.0 Urinary tract infection, site not specified; E44.0 Moderate protein-calorie malnutrition; I69.351 Hemiplegia and hemiparesis following cerebral infarction affecting right dominant side; E87.1 Hypo-osmolality and hyponatremia; K83.09 Other cholangitis; E83.42 Hypomagnesemia; E03.9 Hypothyroidism, unspecified; M79.7 Fibromyalgia; F03.90 Unspecified dementia, unspecified severity, without behavioral disturbance, psychotic disturbance, mood disturbance, and anxiety; M17.11 Unilateral primary osteoarthritis, right knee; E87.8 Other disorders of electrolyte and fluid balance, not elsewhere classified; F32.9 Major depressive disorder, single episode, unspecified; Z20.822 Contact with and (suspected) exposure to COVID-19; E78.5 Hyperlipidemia, unspecified; G40.909 Epilepsy, unspecified, not intractable, without status epilepticus; I10 Essential (primary) hypertension; J44.9 Chronic obstructive pulmonary disease, unspecified; K80.20 Calculus of gallbladder without cholecystitis without obstruction; Z87.440 Personal history of urinary (tract) infections; Z79.899 Other long term (current) drug therapy; Z74.01 Bed confinement status
CPT/HCPCS: 36415; 70450-TC; 71045; 76376; 76770; 80048; 80053; 81000; 83605; 83735; 83880; 84484; 85025; 87040; 87081; 87086; 93005; 93306; 94640; 94760; 96374; 99291; G0378; J0696; J2060; J2543; J7060